=== PATIENT | female | born 1955 | race Caucasian/White ===

== ENCOUNTER 2020-02-06 22:41 | Inpatient (IN) | payer MEDICARE ==
[~2020-02-06] VITALS: Ht 165.1 cm; Wt 57.6 kg
[2020-02-06] MEDS ORDERED: NALOXONE HCL 1MG/ML 2ML SYRINGE ONE (22:49)
[2020-02-06 23:27] LABS: Basophils # (auto) 0.1 10 ^3/uL (0-0.2); Basophils % (auto) 0.6 % (0.0-2.0); Eosinophils # (auto) 0.1 10 ^3/uL (0-0.8); Hemoglobin 10.7 g/dL (12.2-16.2); Monocytes # (auto) 0.1 10 ^3/uL (0-1.3); Neutrophils # (auto) 7.5 10 ^3/uL (1.6-8.6); Nucleated Red Blood Cells % 0.6 %; Red Cell Distribution Width 17.4 % (11.8-14.3)
[2020-02-06 23:29] LABS: Eosinophils % (auto) 1.1 % (0.0-7.0); Hematocrit 38.3 % (36.0-46.0); Lymphocytes # (auto) 1.7 10 ^3/uL (0.4-5.4); Lymphocytes % (auto) 17.5 % (10.0-50.0); Mean Corpuscular Hemoglobin 25.1 pg (28.0-32.0); Mean Corpuscular Volume 89.7 fL (80.0-100.0); Monocytes % (auto) 1.5 % (0.0-12.0); Neutrophils % (auto) 79.3 % (37.0-80.0); Platelet Count (auto) 603 10^3/uL (140-450); Red Blood Cells 4.27 10^6/uL (4.0-5.20); White Blood Cell 9.4 10^3/uL (4.4-10.8)
[2020-02-06] MEDS ORDERED: SODIUM CHLORIDE 0.9% 2,000 ML IV ONE (23:30)
[2020-02-06 23:44] LABS: Alanine Aminotransferase 21 U/L (13-56); Albumin 1.7 g/dL (3.4-5.0); Anion Gap 17 (5-15); Aspartate Aminotransferase 68 U/L (15-37); BUN/Creatinine Ratio 16.7; Blood Urea Nitrogen 23 mg/dL (7-18); Calcium 8.2 mg/dL (8.5-10.1); Carbon Dioxide 11 mmol/L (21-32); Chloride 108 mmol/L (98-107); GFR African American 49 mL/min; GFR Non-African American 41 mL/min; Glucose 239 mg/dL (74-106); Potassium 4.1 mmol/L (3.5-5.1); Sodium 136 mmol/L (136-145)
[2020-02-06] MEDS ORDERED: NOREPINEPHRINE 8 MG/250ML KIT 250 ML IV SCH (23:45)
[2020-02-06] MEDS ORDERED: SODIUM CHLORIDE 0.9% 1,000 ML IV ONE (23:45)
[2020-02-06 23:49] LABS: Alkaline Phosphatase 439 U/L (45-117); Bilirubin, Total 0.4 mg/dL (0.2-1.0); Total Protein 5.3 g/dL (6.4-8.2)
[2020-02-06] MEDS ORDERED: NOREPINEPHRINE 8 MG/250ML KIT 250 ML IV ONE (23:55)
[2020-02-07 00:02] LABS: Amylase 40 U/L (25-115); Lipase 320 U/L (73-393)
[2020-02-07 00:07] LABS: INR 1.12 (0.9-1.15); Partial Thromboplastin Time 34.3 sec (23.64-32.05)
[2020-02-07] MEDS ORDERED: MAGNESIUM CITRATE SOLUTION 300 ML BTL PO ONE (00:15)
[2020-02-07] MEDS ORDERED: FLEET ENEMA(ADULT) 135 ML PR ONE (00:15)
[2020-02-07 00:16] LABS: Amphetamine Screen, Urine NEGATIVE (NEGATIVE); Barbiturate Scree,Urine NEGATIVE (NEGATIVE); Benzodiazephine Screen, Urine POSITIVE (NEGATIVE); Cannabinoid Screen, Urine NEGATIVE (NEGATIVE); Cocaine Screen, Urine NEGATIVE (NEGATIVE); Opiate Scree,Urine POSITIVE (NEGATIVE); Phencyclidine Screen, Urine NEGATIVE (NEGATIVE)
[2020-02-07 00:26] LABS: Urine Amorphous Crystal FEW /hpf (None Seen); Urine Bacteria FEW /hpf (None Seen); Urine Blood TRACE /uL (Negative); Urine Budding Yeast MANY /hpf (None Seen); Urine Hyaline Cast MOD /lpf (0 - 2); Urine Mucus FEW (None Seen); Urine Specific Gravity 1.031 (1.001-1.035); Urine WBC 61 /hpf (0 - 5)
[2020-02-07] MEDS ORDERED: SODIUM CHLORIDE 0.9% 1,750 ML IV ONE (01:30)
[2020-02-07] MEDS ORDERED: VANCOMYCIN 1GM/250ML 250 ML IV ONE (02:00)
[2020-02-07] MEDS: PIPERACILLIN-TAZOB 3.375GM 100 ML IV SCH ×5 (02:04→20:47)
[2020-02-07] MEDS ORDERED: LACTULOSE 20Gm/30ML SOLN PO ONE (02:30)
[2020-02-07] MEDS ORDERED: ONDANSETRON HCL 4 MG/2 ML VIAL IV ONE (03:45)
[2020-02-07] MEDS ORDERED: HYDROmorphone HCL 2 MG/ML VL IV ONE ×2 (03:45→07:00)
[2020-02-07] MEDS ORDERED: GOLYTELY 4L KIT PO ONE ×2 (05:45→07:00)
[2020-02-07] MEDS ORDERED: NITROGLYCERIN 0.4 MG SL TAB SL PRN (06:45)
[2020-02-07] MEDS ORDERED: MORPHINE SULF INJ 2 MG/ML SYRINGE 1ML IV PRN (06:45)
[2020-02-07] MEDS ORDERED: DEXTROSE (50%) 50ML SYRG IV PRN ×2 (06:45→14:45)
[2020-02-07] MEDS ORDERED: VANCOMYCIN PER PHARMACY 0 MG IV SCH (06:45)
[2020-02-07] MEDS ORDERED: SODIUM CHLORIDE 0.9% 1,000 ML IV SCH (06:45)
[2020-02-07 07:43] LABS: BUN/Creatinine Ratio 24.5; Potassium 3.6 mmol/L (3.5-5.1)
[2020-02-07] MEDS: MORPHINE SULFATE 4 MG/ML SYR/VIAL IV PRN ×2 (08:13→12:19)
[2020-02-07] MEDS: ONDANSETRON HCL 4 MG/2 ML VIAL IV PRN ×2 (08:13→12:19)
--- NOTE | 2020-02-07 09:15 | NUR ---
Midline Placement: Patient educated on need for midline placement. All risks and benefits explained and all questions and concerns addresses prior to procedure. 18g/10cm midline inserted via BASILIC vein using Ultrasound. Sterile technique utilized. Blood return obtained from SINGLE lumen and flushed easily with NS using proper technique. Midline secured with saline lock; biodisc and occlusive dressing applied. Primary RN notified. Midline lot # [id number].
[2020-02-07] MEDS: VANCOMYCIN 1GM/250ML 250 ML IV SCH ×2 (09:39→22:00)
[2020-02-07] MEDS ORDERED: PANTOPRAZOLE 40 MG/10 ML VIAL INJ IV SCH (10:00)
[2020-02-07] MEDS ORDERED: PIPERACILLIN-TAZOB 3.375GM 100 ML IV SCH (12:00)
[2020-02-07] MEDS ORDERED: ACCU-CHEK COMFORT CURVE STRIP VI SCH (12:00)
[2020-02-07] MEDS ORDERED: InsuLIN REG 1unit/0.01ml Soln (100units/ml) SC SCH (12:00)
[2020-02-07] MEDS ORDERED: LORazepam 2MG/ML-1ML VIAL IV ONE (13:00)
[2020-02-07] MEDS ORDERED: KETOROLAC TROMETH 30 MG/ML 1ML VIAL IV PRN (13:00)
[2020-02-07] MEDS ORDERED: GABA100C9 PO (14:05)
[2020-02-07] MEDS ORDERED: LISI40TA11 PO (14:05)
[2020-02-07] MEDS ORDERED: ALPR0.5T7 PO (14:05)
[2020-02-07] MEDS ORDERED: BUPR100T14 PO (14:05)
[2020-02-07] MEDS ORDERED: ESCI10TA53 PO (14:05)
[2020-02-07] MEDS ORDERED: AMIT25TA9 PO (14:05)
[2020-02-07] MEDS ORDERED: TEMA30CA PO (14:05)
[2020-02-07] MEDS ORDERED: SIMV-8 PO (14:05)
[2020-02-07] MEDS ORDERED: FURO20TA3 PO (14:05)
[2020-02-07] MEDS ORDERED: METO-159 PO (14:05)
[2020-02-07] MEDS ORDERED: LEVO75TA50 PO (14:05)
[2020-02-07] MEDS ORDERED: CLOP75TA41 PO (14:05)
[2020-02-07 14:15] LABS: Hematocrit 35.1 % (36.0-46.0); Hemoglobin 10.4 g/dL (12.2-16.2)
[2020-02-07] MEDS ORDERED: FENT75DI2 TD (14:16)
[2020-02-07] MEDS ORDERED: PEN400T PO (14:16)
[2020-02-07] MEDS ORDERED: OXYC325T14 PO (14:16)
[2020-02-07] MEDS ORDERED: PANTOPRAZOLE 40mg/50ML NS AE 50 ML IV ONE (14:27)
[2020-02-07] MEDS ORDERED: D5W/SOD CHL 0.45% 1,000 ML IV SCH (14:30)
[2020-02-07] MEDS: PANTOPRAZOLE 40mg/50ML NS AE 50 ML IV SCH ×2 (14:40→20:22)
[2020-02-07] MEDS ORDERED: LORazepam 2MG/ML-1ML VIAL IV PRN (14:45)
[2020-02-07 15:18] LABS: Lactic Acid w/Reflex 3.3 mmol/L (0.4-2.0)
[2020-02-07 15:19] VITALS: BP 101/50
[2020-02-07] MEDS ORDERED: NOREPINEPHRINE 8 MG/250ML KIT 250 ML IV ONE (17:08)
[2020-02-07] MEDS ORDERED: NOREPINEPHRINE 8 MG/250ML KIT 250 ML IV SCH (17:14)
[2020-02-07] MEDS ORDERED: MIDAZOLAM DRIP 50 mg/50mL 50 ML IV SCH (17:14)
[2020-02-07] MEDS ORDERED: ETOMIDATE (2MG/ML) 20ML VIAL IV ONE ×2 (17:15)
[2020-02-07] MEDS ORDERED: SUCCINYLCHOLINE CHLORIDE 20 MG/ML 10ML VIAL IV ONE ×2 (17:15)
[2020-02-07] MEDS ORDERED: MIDAZOLAM DRIP 50 mg/50mL 50 ML IV ONE (17:17)
[2020-02-07 17:35] VITALS: BP 75/94
[2020-02-07] MEDS: InsuLIN REG 1unit/0.01ml Soln (100units/ml) SC SCH (18:00)
[2020-02-07] MEDS ORDERED: ALBUTEROL SULF 2.5 MG/0.5ML(0.5%) NEB SOLN NEB SCH (18:00)
[2020-02-07] MEDS ORDERED: IPRATROPIUM BROM 0.5 MG/2.5ML INH SOL NEB SCH (18:00)
[2020-02-07] MEDS: ACCU-CHEK COMFORT CURVE STRIP VI SCH (18:14)
[2020-02-07] MEDS ORDERED: SODIUM CHLORIDE 0.9% 500 ML IV ONE (19:30)
[2020-02-07 20:15] VITALS: BP 106/47
--- NOTE | 2020-02-07 21:07 | NUR ---
PT. ARRIVED FROM ER TO ICU BED# 104; PLACED PT. ON BEDSIDE MONITOR; SEE INTERVENTIONS FOR ASSESSMENT; SEE IV SPREADSHEET FOR GTTS; VS STABLE AT THIS TIME WITH SBP IN THE 90'S AND ON LEVOPHED GTT; TEMP= 100.4/RECTALLY AND COOLING MEASURES STARTED WITH ROOM TEMP ADJUSTED AND ICE BAGS PLACED TO AXILLA AREA; PT. INTUBATED/SEDATED/VENTED; PT. IS A R/O COVID-19 ISOLATION; WILL CONT. TO MONITOR.
[2020-02-07 22:00] VITALS: BP 96/50
[2020-02-07 22:25] VITALS: BP 105/50
[2020-02-08] VITALS (54 sets, daily range): BP systolic 55–139; BP diastolic 25–74
[2020-02-08 01:19] LABS: Hemoglobin 9.3 g/dL (12.2-16.2)
[2020-02-08 01:26] LABS: Basophils # (auto) 0 10 ^3/uL (0-0.2); Eosinophils # (auto) 0.1 10 ^3/uL (0-0.8); Eosinophils % (auto) 0.4 % (0.0-7.0); Hematocrit 31.1 % (36.0-46.0); Lymphocytes # (auto) 0.5 10 ^3/uL (0.4-5.4); Lymphocytes % (auto) 3.4 % (10.0-50.0); Mean Corpuscular Hemoglobin 24.7 pg (28.0-32.0); Mean Corpuscular Volume 82.3 fL (80.0-100.0); Monocytes # (auto) 0.7 10 ^3/uL (0-1.3); Monocytes % (auto) 5.2 % (0.0-12.0); Nucleated Red Blood Cells % 0.3 %; Platelet Count (auto) 353 10^3/uL (140-450); Red Blood Cells 3.77 10^6/uL (4.0-5.20); Red Cell Distribution Width 16.9 % (11.8-14.3); White Blood Cell 13.2 10^3/uL (4.4-10.8)
[2020-02-08 01:35] LABS: Albumin 1.4 g/dL (3.4-5.0); Calcium 7.4 mg/dL (8.5-10.1); Potassium 3.9 mmol/L (3.5-5.1)
[2020-02-08 01:38] LABS: BUN/Creatinine Ratio 30.6
[2020-02-08 01:40] LABS: INR 1.12 (0.9-1.15)
[2020-02-08 01:42] LABS: Bilirubin, Total 0.3 mg/dL (0.2-1.0); Total Protein 4.8 g/dL (6.4-8.2)
[2020-02-08] MEDS: PANTOPRAZOLE 40mg/50ML NS AE 50 ML IV SCH ×2 (02:00→08:00)
[2020-02-08] MEDS: PIPERACILLIN-TAZOB 3.375GM 100 ML IV SCH ×3 (02:00→14:11)
[2020-02-08 02:21] LABS: Cholesterol 57 mg/dL (< 200); HDL Cholesterol 20 mg/dL (40-59); LDL Cholesterol 11 mg/dL (< 100); Triglycerides 76 mg/dL (< 150)
[2020-02-08 02:28] LABS: Magnesium 3.8 mg/dL (1.6-2.6)
[2020-02-08] MEDS: InsuLIN REG 1unit/0.01ml Soln (100units/ml) SC SCH ×3 (06:00→12:00)
[2020-02-08] MEDS: ACCU-CHEK COMFORT CURVE STRIP VI SCH ×3 (06:00→12:00)
[2020-02-08 06:55] LABS: Basophils # (auto) 0 10 ^3/uL (0-0.2); Basophils % (auto) 0.1 % (0.0-2.0); Eosinophils # (auto) 0.1 10 ^3/uL (0-0.8); Hematocrit 30.2 % (36.0-46.0); Nucleated Red Blood Cells % 0.4 %
[2020-02-08 06:57] LABS: Hemoglobin 9.1 g/dL (12.2-16.2); Lymphocytes # (auto) 0.7 10 ^3/uL (0.4-5.4); Mean Corpuscular Hemoglobin 24.8 pg (28.0-32.0); Mean Corpuscular Hgb Conc. 30.1 g/dL (32.0-36.0); Mean Corpuscular Volume 82.3 fL (80.0-100.0); Monocytes # (auto) 0.5 10 ^3/uL (0-1.3); Monocytes % (auto) 3.5 % (0.0-12.0); Neutrophils # (auto) 12.2 10 ^3/uL (1.6-8.6); Neutrophils % (auto) 90.4 % (37.0-80.0); Platelet Count (auto) 302 10^3/uL (140-450); Red Blood Cells 3.67 10^6/uL (4.0-5.20); White Blood Cell 13.5 10^3/uL (4.4-10.8)
--- NOTE | 2020-02-08 07:00 | NUR ---
REPORT RECEIVED FROM CHEMICAL ENGINEERING INTERN NURSE. PATIENT RESTING IN BED AT THIS TIME. RESPIRATIONS EVEN, BUT LABORED WITH AGONAL BREATHING NOTED. RESPIRATORY THERAPIST TO DRAW MORNING ABG. BED IN LOW POSITION WILL CONTINUE TO MONITOR.
[2020-02-08 07:17] LABS: Albumin 1.3 g/dL (3.4-5.0); BUN/Creatinine Ratio 30.4; Calcium 7.3 mg/dL (8.5-10.1); Potassium 4.2 mmol/L (3.5-5.1)
[2020-02-08 07:18] LABS: Bilirubin, Total 0.4 mg/dL (0.2-1.0); Lactic Acid w/Reflex 2.5 mmol/L (0.4-2.0); Total Protein 4.7 g/dL (6.4-8.2)
--- NOTE | 2020-02-08 08:30 | NUR ---
STATUS CHANGE UPON ASSESSING PATIENT, BLOOD PRESSURE HAS DECREASED TO 70-80'S AND SUSTAINING. INCREASED CURRENT BLOOD PRESSURE MEDICATIONS AND PAGED ARTIFICIAL BREAST FABRICATOR HOSPITALIST FOR ORDERS. AWAITING CALL BACK.
[2020-02-08 08:36] LABS: Hematocrit 29.9 % (36.0-46.0); Hemoglobin 9.2 g/dL (12.2-16.2)
[2020-02-08] MEDS ORDERED: PHENYLEPHRINE IV 250 ML IV ONE ×2 (08:40→11:17)
[2020-02-08] MEDS: PHENYLEPHRINE IV 250 ML IV SCH ×3 (08:45→15:02)
--- NOTE | 2020-02-08 08:57 | NUR ---
RT NOTE: ABG RESULTS LEFT ON VM FOR .
--- NOTE | 2020-02-08 09:10 | NUR ---
SPOKE WITH DR PAIGE REGARDING ABG RESULTS RECEIVED NEW ORDERS, NOTIFIED RESPIRATORY THERAPIST OF VENT CHANGES TO BE MADE
[2020-02-08] MEDS ORDERED: SODIUM BICARBONATE 8.4 % INJ 50ML VIAL IV ONE ×2 (09:15→12:45)
[2020-02-08] MEDS ORDERED: SODIUM BICARBONATE 8.4% INJ 50ML SYRINGE ONE (09:17)
--- NOTE | 2020-02-08 09:38 | NUR ---
RHYTHM CHANGE PATIENT WENT INTO A FIB RVR, OBTAINED EKG PER PROTOCOL. PAGED GREEN HOUSE MANAGER HOSPITALIST. AWAITING CALL BACK.
[2020-02-08] MEDS ORDERED: VASOPRESSIN 20 UNIT/ML ONE (09:40)
[2020-02-08] MEDS ORDERED: VASOPRESSIN 50 UNITS in D5W 5% 247.5 ML IV SCH ×2 (09:45→11:00)
[2020-02-08] MEDS ORDERED: AMIODARONE HCL 150 MG in D5W 5% 100 ML IV ONE (09:45)
--- NOTE | 2020-02-08 09:50 | NUR ---
SPOKE WITH DR PAIGE UPDATED ON CURRENT STATUS AND RECEIVED NEW ORDERS.
[2020-02-08] MEDS ORDERED: AMIODARONE 450mg/250ml AE 250 ML IV SCH ×2 (09:52→15:52)
[2020-02-08] MEDS ORDERED: AMIODARONE 450mg/250ml AE 250 ML IV ONE (09:55)
[2020-02-08] MEDS ORDERED: ENOXAPARIN SOD 40 MG/0.4 ML SYRINGE SC SCH (10:00)
--- NOTE | 2020-02-08 10:05 | NUR ---
SPOKE WITH PATIENTS VENKATA ([phone]) UPDATED ON CURRENT STATUS OF PATIENT. PER , PATIENTS ADVANCE DIRECTIVE STATES SHE DID NOT WANT PROLONGED LIFE. WANTS TO CONTINUE CURRENT TREATMENT BUT NOT ADD ANYMORE AND MAKE PATIENT FULL DNR. VERIFIED WITH SECOND RN. WILL NOTIFY .
--- NOTE | 2020-02-08 10:47 | NUR ---
DR PAIGE CALLED TO DISCUSS PLAN OF CARE. PER MD START PATIENT ON 1/2NS 3AMPS SODIUM BICARB DRIP WITH RATE OF 100ML/HR. ALL ORDERS NOTED IN CHART.
[2020-02-08] MEDS ORDERED: SODIUM BICARBONATE 50ML VIAL 150 ML in SOD CHL 0.45% 1,000 ML IV SCH (11:00)
[2020-02-08] MEDS: VANCOMYCIN 1GM/250ML 250 ML IV SCH (12:00)
[2020-02-08] MEDS ORDERED: HYDROCORTISONE SOD SUCC 100 MG/2ML INJ VIAL IV SCH (12:00)
--- NOTE | 2020-02-08 12:39 | NUR ---
SPOKE TO DR PAIGE TO INFORM OF PATIENTS ABG RESULTS. PER MD ADMINISTER 3 AMPS OF SODIUM BICARB IVP X1 AND INCREASE RESPIRATORY RATE TO 24 AND TIDAL VOLUME 600. ALL ORDERS NOTED IN CHART.
--- NOTE | 2020-02-08 12:44 | NUR ---
SPOKE TO AND UPDATED ON PATIENT STATUS. INFORMED OF NEGATIVE COVID TESTING AND THAT HE IS ABLE TO COME IN A TO SEE PATIENT. PER HE DOES NOT WANT TO REMEMBER HER THAT WAY.
--- NOTE | 2020-02-08 13:56 | NUR ---
DR PYLE AT BEDSIDE TO ASSESS PATIENT AND DISCUSS PLAN OF CARE. ALL ORDERS NOTED IN CHART.
--- NOTE | 2020-02-08 14:10 | NUR ---
FINANCIAL MARKET DEALER AT BEDSIDE.
[2020-02-08 14:34] LABS: Platelet Count (auto) 205 10^3/uL (140-450); White Blood Cell 10.6 10^3/uL (4.4-10.8)
[2020-02-08 14:36] LABS: Hemoglobin 7.1 g/dL (12.2-16.2); Mean Corpuscular Hemoglobin 25.2 pg (28.0-32.0); Mean Corpuscular Hgb Conc. 27.2 g/dL (32.0-36.0); Mean Corpuscular Volume 92.7 fL (80.0-100.0)
[2020-02-08 14:43] LABS: Basophils % (manual) 0 (0.0-2.0); Blast Cells 0; Promyelocytes % 0; Reactive Lymphocytes 0
[2020-02-08] MEDS ORDERED: IPRATROPIUM BROM 0.5 MG/2.5ML INH SOL NEB PRN (14:45)
[2020-02-08] MEDS ORDERED: ALBUTEROL SULF 2.5 MG/0.5ML(0.5%) NEB SOLN NEB PRN (14:45)
[2020-02-08] MEDS ORDERED: FLUCONAZOLE 200MG/100ML 100 ML IV ONE (14:45)
[2020-02-08 14:56] LABS: BUN/Creatinine Ratio 21.3; Calcium 6.7 mg/dL (8.5-10.1)
[2020-02-08 15:12] LABS: Lactic Acid w/Reflex 15.9 mmol/L (0.4-2.0)
--- NOTE | 2020-02-08 15:46 | NUR ---
PAGED DR PYLE TO INFORM OF PATIENTS . AWAITING CALL BACK.
--- NOTE | 2020-02-08 15:53 | NUR ---
SPOKE TO DR PYLE TO TO INFORM PATIENTS , PER MD CALL MEDICAL IMAGING TECHNOLOGIST TO PRONOUNCE. SPOKE TO MEDICAL IMAGING TECHNOLOGIST AND WILL BE OVER TO PRONOUNCE PATIENT.
[2020-02-08 15:56] LABS: Potassium 5.6 mmol/L (3.5-5.1)
--- NOTE | 2020-02-08 16:04 | NUR ---
PRONOUNCEMENT OF REQUESTED TO PRONOUNCE SINCE PMD UNAVAILABLE. PT WAS MADE A DNR 02/07. FOUND PULSELESS AND APNEIC. ASYSTOLE IN 3 LEADS. ABSENCE OF PULSE AND RESPIRATIONS AFTER ONE FULL MINUTE OF AUSCULTATION. NO PUPILLARY RESPONSE, NO CORNEAL REFLEX OR DTR'S. TOD 1608
--- NOTE | 2020-02-08 16:05 | NUR ---
Respiratory note: LAST VENT CHECK NOT DONE. PT AND PRONOUNCED AT 1604.
--- NOTE | 2020-02-08 16:11 | NUR ---
NOTIFIED VENKATA OF PATIENTS . PER HE WILL CALL [facility] [facility] [employer].
--- NOTE | 2020-02-08 16:19 | NUR ---
[facility] SPOKE TO KATYA FROM [facility]. PATIENT IS NOT A CANDIDATE FOR DONATION AT THIS TIME. CASE# [id number]
--- NOTE | 2020-02-08 16:30 | NUR ---
NURSING SCHEDULER CALLED NURSING SCHEDULER AND SPOKE TO KAILYN TO REPORT . AWAITING CALL BACK FROM NURSING SCHEDULER.
[2020-02-08 16:58] LABS: Band Neutrophils % (manual) 22; Eosinophils % (manual) 1 (0-7); Lymphocytes % (manual) 16 (10.0-50.0); Metamyelocytes % 3; Monocytes % (manual) 8 (0-12); Myelocytes % 1
--- NOTE | 2020-02-08 22:02 | NUR ---
OPERATIONS PROJECT MANAGER CALLED AND RELEASED BODY .
--- NOTE | 2020-02-09 01:30 | NUR ---
MORTUARY HERE TO EMISSION TECHNICIAN REMAINS.
[2020-02-09] MEDS ORDERED: FLUCONAZOLE 200MG/100ML 100 ML IV SCH (13:00)
== END 2020-02-08 16:04 | disposition expired | DRG 871 ==
LOC: ER 22:41 → EDBD 22:41 → OVERFLOW 22:42 → ICU WEST 02-07 18:24 → TELE 02-07 19:04 → ICU WEST 02-07 21:04
PROVIDERS: ADMIT Nurse Practitioner; ATTEND Internal Medicine
PROC: 5A1935Z Respiratory Ventilation, Less than 24 Consecutive Hours (ICD-10-PCS; 2020-02-06)
PROC: 0BH17EZ Insertion of Endotracheal Airway into Trachea, Via Natural or Artificial Opening (ICD-10-PCS; 2020-02-06)
PROC: 02HV33Z Insertion of Infusion Device into Superior Vena Cava, Percutaneous Approach (ICD-10-PCS; principal; 2020-02-07)
DX: A41.9 Sepsis, unspecified organism (principal); G93.41 Metabolic encephalopathy; J96.01 Acute respiratory failure with hypoxia; R65.21 Severe sepsis with septic shock; E43 Unspecified severe protein-calorie malnutrition; J69.0 Pneumonitis due to inhalation of food and vomit; B37.49 Other urogenital candidiasis; G93.1 Anoxic brain damage, not elsewhere classified; K56.0 Paralytic ileus; N17.9 Acute kidney failure, unspecified; E86.0 Dehydration; G89.4 Chronic pain syndrome; K52.9 Noninfective gastroenteritis and colitis, unspecified; N18.9 Chronic kidney disease, unspecified; Z66 Do not resuscitate; I48.91 Unspecified atrial fibrillation; I25.10 Atherosclerotic heart disease of native coronary artery without angina pectoris; Z95.5 Presence of coronary angioplasty implant and graft; I25.2 Old myocardial infarction; Z03.818 Encounter for observation for suspected exposure to other biological agents ruled out
CPT/HCPCS: 36415; 36600; 51702; 71045; 71250; 74018; 74176; 76700; 80048; 80053; 80061; 80307; 80320; 81001; 82010; 82150; 82550; 82728; 82805; 82962; 83036; 83605; 83690; 83735; 83880; 84443; 84484; 85007; 85014; 85018; 85025; 85027; 85379; 85610; 85730; 86850; 86900; 86901; 87040; 87070; 87081; 87086; 87088; 87186; 87205; 87804; 87880; 93005; 93306; 93970; 94002; 94003; 94640; 99291; C9113; G0378; J0330; J1815; J2250; J2405; J2543; J7060